=== PATIENT | female | born 1970 | race Caucasian/White ===

== ENCOUNTER 2023-12-03 07:23 | Emergency (ER) | payer OTHER, MEDICAID, SELFPAY ==
[2023-12-03 07:41] VITALS: BP 118/70; PULSE 82; RESP 18; TEMP 36.4; O2SAT 99; BMI 33.3
--- NOTE | 2023-12-03 09:55 | ED.BACK ---
HPI - Back Pain/Injury General Chief Complaint: Back Pain/Injury Stated Complaint: severe back pain down to L leg Time Seen by Provider: 12/03/23 09:33 Source: patient History of Present Illness HPI Narrative: Patient states she used an UBER/taxi to come here. Is not driving. Denies any allergies to medications. Patient states she has had ongoing pain lower back radiating to left greater than right leg down to the knees. Patient states she slipped and fell on some steps at work 3 weeks ago. She does not want L and I forms completed. She states she grabbed the hand rail with her right arm but slid down several steps. No loss of consciousness. Did not hit her head or neck. Had bruising to the left elbow and knee. That has improved. In addition, she was seen this past week at walk-in clinic for UTI. She is on antibiotics currently. No bowel or bladder incontinence. No saddle paresthesia. No numbness or tingling or weakness in her legs or feet. Feet and toes are exposed. Patient able to stand and transfer and walk from wheelchair to the bed. Related Data Previous Rx's Medication Instructions Recorded baclofen 20 mg tablet 20 mg PO TID PRN pain (scale score 12/03/23 4-6) #20 tabs Allergies Allergy/AdvReac Type Severity Reaction Status Date / Time No Known Drug Allergies Allergy Verified 12/03/23 07:52 Review of Systems Review of Systems Narrative: GENERAL: negative chills, fatigue, malaise, fever, sweats. HEENT: negative sinus pain, ear pain, sore throat RESPIRATORY: negative dyspnea, cough CARDIOVASCULAR: negative chest pain, palpitations GASTROINTESTINAL: negative nausea, vomiting, abdominal pain : negative dysuria, frequency, hematuria MUSCULOSKELETAL: Positive muscle or bony pain SKIN: negative rash, skin lesions NEUROLOGIC: negative weakness, numbness ROS Unobtainable: All systems reviewed & are unremarkable except as noted in HPI and below Patient History Social History Smoking Status: Never smoker Smoking Status: Never smoker Substance Use Type: does not use Exam Narrative Exam Narrative: GENERAL: in no distress, not toxic not dyspneic HEAD: Normocephalic. EYES: Pupils equal round ENT: Mucous membranes moist. NECK: Trachea midline. No midline tenderness or step-off of the cervical thoracic or lumbar spine. CARDIOVASCULAR: Regular rate and rhythm RESPIRATORY: Clear to auscultation. Breath sounds equal bilaterally. No wheezes, rales, or rhonchi. GASTROINTESTINAL: Abdomen soft, non-tender EXTREMITIES: No gross deformities. Left knee and elbow exposed. Full active range of motion of the left elbow with flexion-extension supination pronation. No skin injury/abrasion seen. Examination of the left knee, able to fully extend and bend to 90?. Nontender on exam. Skin is intact. No pain or laxity of the left knee with anterior posterior medial lateral and rotational stress of the left leg. BACK: No flank tenderness. Mild tenderness to bilateral para sacral paralumbar muscles. No midline tenderness or step-off. No bruising seen. Patient able to stand and bear weight. Limited ability to lean forward and back and do side bends. Mild pain straight leg raise on the left at 45?. No pain with the right straight leg raise. NEURO: AOx4. Steady self gait but slow. Strong bilateral patellar reflexes as well as ankle flexion-extension. Feet are warm soft and pink with strong pedal pulses. Brisk cap refills. Light touch intact bilateral feet and toes. SKIN: Warm and dry PSYCH: Not anxious, is cooperative Initial Vital Signs Initial Vital Signs: Vital Signs Temperature 97.6 F 12/03/23 07:41 Pulse Rate 82 12/03/23 07:41 Respiratory Rate 18 12/03/23 07:41 Blood Pressure 118/70 12/03/23 07:41 Pulse Oximetry 99 12/03/23 07:41 Oxygen Delivery Method Room Air 12/03/23 07:41 Course Orders Ordered: Discontinued Medications Hydrocodone Bitart/Acetaminophen (Hydrocodone/Acet 5/325 Tablet) 1 tab PO NOW ONE Stop: 12/03/23 09:55 Last Admin: 12/03/23 10:17 Dose: 1 tab Documented By: SHELLY Ketorolac Tromethamine (Ketorolac 30 Mg/Ml Vial) 30 mg IM NOW ONE Stop: 12/03/23 09:55 Last Admin: 12/03/23 10:17 Dose: 30 mg Documented By: SHELLY Ondansetron HCl (Ondansetron 4 Mg Odt) 4 mg SL NOW ONE Stop: 12/03/23 09:55 Last Admin: 12/03/23 10:17 Dose: 4 mg Documented By: RB Vital Signs Vital signs: Vital Signs - 8 hr 12/03/23 07:41 Temperature 97.6 F Pulse Rate 82 Respiratory Rate 18 Blood Pressure 118/70 Pulse Oximetry 99 Oxygen Delivery Method Room Air MDM - Back Pain/Injury Imaging Data CT pelvis: Radiologist's Impression: [place] [address] CT Scan Report Signed Patient: Christy Grider MR#: [id number] : 1970 Acct:[id number] Age/Sex: 53 / F Date of Service: 12/03/23 Loc: ED Accession Number: [id number] Procedure: CT pelvis wo con Ordering Provider: Pranav Mullen MD PROCEDURE: CT PEL WO CON INDICATIONS: Fall/pain TECHNIQUE: Noncontrast 3 mm axial sections acquired through the bony pelvis, with coronal and sagittal reformatting. COMPARISON: [facility], CT, CT LUMBAR SPINE WO CON, 12/03/2023, 10:06. FINDINGS: Image quality: Excellent. Bones: No fracture or dislocation. Mild degenerative joint disease in hips and sacroiliac joints. Spondylitic changes in lumbar spine. Soft tissues: No soft tissue mass or hematoma. Note is made of myomatous uterus. No free fluid in pelvis. IMPRESSION: 1. No acute osseous abnormalities. Dictated by: Steve Deras M.D. on 12/03/2023 at 10:16 Approved by: Steve Deras M.D. on 12/03/2023 at 10:19 CT lumbar spine: Radiologist's Impression: [address] [address] [address] Scan Report Signed Patient: Christy Grider MR#: [id number] : 1970 Acct:[id number] Age/Sex: 53 / F Date of Service: 12/03/23 Loc: ED Accession Number: [id number] Procedure: CT lumbar spine wo con Ordering Provider: Pranav Mullen MD PROCEDURE: CT LUMBAR SPINE WO CON INDICATIONS: Fall/pain TECHNIQUE: Noncontrast 3 mm thick sections acquired from the T12 level to the sacrum. Sagittal and coronal reformats were constructed. For radiation dose reduction, the following was used: automated exposure control. COMPARISON: None. FINDINGS: Image quality: Excellent. Bones: There is normal bony alignment. No acute vertebral body compression fractures. There is grade 1 anterolisthesis of L4 on L5. No suspicious lytic or blastic bony lesions. No pars defects. Mild degenerative disease at L2-L3, L4-L5 and L5-S1. Facet arthropathy in lumbar spine, severe at L4-L5 and L5-S1 bilaterally, and mild at L1-L2, L2-L3 and L3-L4. Central canal stenosis, moderate at L4-L5, mild at L3-L4 and L5-S1. Soft tissues: No retroperitoneal masses or hematomas. Visualized aorta is normal in caliber. IMPRESSION: 1. No acute osseous abnormalities. 2. Multilevel degenerative disc disease and facet arthropathy as described. 3. Moderate central canal stenosis at L4-L5, and mild central canal stenosis at L3-L4 and L5-S1. Dictated by: Steve Deras M.D. on 12/03/2023 at 10:19 Approved by: Steve Deras M.D. on 12/03/2023 at 10:23 Extremity x-ray #1: Radiologist's Impression: [address] [address] XRay Report Signed Patient: Christy Grider MR#: [id number] : 1970 Acct:[id number] Age/Sex: 53 / F Date of Service: 12/03/23 Loc: ED Accession Number: [id number] Procedure: XR knee LT 3V Ordering Provider: Pranav Mullen MD PROCEDURE: XR KNEE LT 3V INDICATIONS: Fall/pain TECHNIQUE: 3 views of the knee were acquired. COMPARISON: None. FINDINGS: Bones: No fractures or dislocations. No suspicious bony lesions. Soft tissues: No joint effusion. No suspicious soft tissue calcifications. IMPRESSION: No acute bony abnormality or significant effusion. If clinical symptoms persist or clinical suspicion for pathology is high, a repeat examination in 7-10 days, or advanced imaging such as CT or MRI is suggested for further evaluation. Dictated by: Steve Deras M.D. on 12/03/2023 at 11:53 Approved by: Steve Deras M.D. on 12/03/2023 at 11:53 Extremity x-ray #3: Radiologist's Impression: [address] [address] XRay Report Signed Patient: Christy Grider MR#: [id number] : 1970 Acct:[id number] Age/Sex: 53 / F Date of Service: 12/03/23 Loc: ED Accession Number: [id number] Procedure: XR elbow LT min 3V Ordering Provider: Pranav Mullen MD PROCEDURE: XR ELBOW LT MIN 3V INDICATIONS: Fall/pain TECHNIQUE: 3 views of the elbow were acquired. COMPARISON: None. FINDINGS: Bones: No fractures or dislocations. No suspicious bony lesions. Mild osteoarthritic changes noted. Soft tissues: No elbow joint effusion. No suspicious soft tissue calcifications. IMPRESSION: No acute bony abnormality or significant joint effusion. If clinical symptoms persist or clinical suspicion for pathology is high, a repeat examination in 7-10 days, or advanced imaging such as CT or MRI is suggested for further evaluation. Dictated by: Steve Deras M.D. on 12/03/2023 at 11:51 Approved by: Steve Deras M.D. on 12/03/2023 at 11:52 [facility] Narrative Medical decision making narrative: Patient states she used an UBER/taxi to come here. Is not driving. Denies any allergies to medications. Patient states she has had ongoing pain lower back radiating to left greater than right leg down to the knees. Patient states she slipped and fell on some steps at work 3 weeks ago. She does not want L and I forms completed. She states she grabbed the hand rail with her right arm but slid down several steps. No loss of consciousness. Did not hit her head or neck. Had bruising to the left elbow and knee. That has improved. In addition, she was seen this past week at walk-in clinic for UTI. She is on antibiotics currently. No bowel or bladder incontinence. No saddle paresthesia. No numbness or tingling or weakness in her legs or feet. Feet and toes are exposed. Patient able to stand and transfer and walk from wheelchair to the bed. After history and exam CT pelvis CT lumbar spine Toradol Dexter Zofran, at this time no blood work indicated. Patient already being treated for UTI, no urinalysis indicated. Clinically not pyelonephritis or kidney stone., x-ray left elbow x-ray left knee [facility] CC: Back pain Complicating co-morbidities: Recent fall Data collected from: Patient Medical records reviewed: No recent visit for this complaint Differential considered: Includes but not limited to pelvis contusion back contusion vertebral fracture herniated disc pelvic fracture Exam documented above, pertinent findings include: Tender lumbosacral area. Full active range of motion of left knee and elbow Lab Test results independently reviewed as above. Pertinent findings: None indicated this time Imaging studies independently reviewed: CT pelvis CT lumbar spine x-ray left elbow x-ray left knee no acute finding Consultations: None indicated Treatments: Toradol Dexter Zofran Re-evaluations: 12:00 p.m.. Reviewed results with patient. Patient states pain is much better now. She feels like the Toradol helped her more than the Dexter. I will prescribe oral ketorolac for her. Reviewed with her likely after her injury she continued to work and she has existing back problems and likely exacerbated this. Primary care referral given. Work note provided however, she still desires to go to work tomorrow. She was supposed to be at work today. 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 Return precautions reviewed. She will call a taxi for home. Not toxic at discharge. She desires discharge home Discussion: Appropriate for discharge home. Pain is controlled. Work note provided. Oral ketorolac and baclofen will be provided. Not toxic at discharge. 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 Return precautions reviewed. She desires discharge home. Diagnosis: Elbow contusion knee contusion back contusion Discharge Plan Departure Patient Disposition: Home Clinical Impression: Back contusion, Contusion of elbow, left, Contusion of knee, left Instructions: DI for Low Back Pain, DI for Contusion, DI for Back Pain With Sciatica Activity Restrictions/Additional Instructions: Please see family doctor in a week for re-evaluation of your injuries. Get plenty of rest. Work note has been provided for you. Return if worse if any questions or concerns. No driving or operating machinery today. Call provided primary care referral phone number to establish family doctor. Call [phone] Prescriptions: New baclofen 20 mg tablet 20 mg PO TID PRN (Reason: pain (scale score 4-6)) Qty: 20 0RF Stand Alone Forms: Patient Portal/API, Work Release Note
--- NOTE | 2023-12-03 10:00 | DI.RAD.S_ITS ---
PROCEDURE: XR KNEE LT 3V INDICATIONS: Fall/pain TECHNIQUE: 3 views of the knee were acquired. COMPARISON: None. FINDINGS: Bones: No fractures or dislocations. No suspicious bony lesions. Soft tissues: No joint effusion. No suspicious soft tissue calcifications. IMPRESSION: No acute bony abnormality or significant effusion. If clinical symptoms persist or clinical suspicion for pathology is high, a repeat examination in 7-10 days, or advanced imaging such as CT or MRI is suggested for further evaluation. Dictated by: Steve Deras M.D. on 12/03/2023 at 11:53 Approved by: Steve Deras M.D. on 12/03/2023 at 11:53
--- NOTE | 2023-12-03 10:00 | DI.RAD.S_ITS ---
PROCEDURE: XR ELBOW LT MIN 3V INDICATIONS: Fall/pain TECHNIQUE: 3 views of the elbow were acquired. COMPARISON: None. FINDINGS: Bones: No fractures or dislocations. No suspicious bony lesions. Mild osteoarthritic changes noted. Soft tissues: No elbow joint effusion. No suspicious soft tissue calcifications. IMPRESSION: No acute bony abnormality or significant joint effusion. If clinical symptoms persist or clinical suspicion for pathology is high, a repeat examination in 7-10 days, or advanced imaging such as CT or MRI is suggested for further evaluation. Dictated by: Steve Deras M.D. on 12/03/2023 at 11:51 Approved by: Steve Deras M.D. on 12/03/2023 at 11:52
[2023-12-03] MEDS: HYDROCODONE/ACET 5/325 TABLET 1 TAB PO (10:17)
[2023-12-03] MEDS: ONDANSETRON 4 MG ODT SL (10:17)
[2023-12-03] MEDS: KETOROLAC 30 MG/ML VIAL IM (10:17)
[2023-12-03 12:47] VITALS: BP 121/70; PULSE 86; RESP 16; TEMP 36.7; O2SAT 99
== END 2023-12-03 11:45 | disposition home or self-care (01) ==
PROVIDERS: Emergency Provider Emergency Medicine
DX: S80.02XA Contusion of left knee, initial encounter (principal); S50.02XA Contusion of left elbow, initial encounter; S30.0XXA Contusion of lower back and pelvis, initial encounter; W10.9XXA Fall (on) (from) unspecified stairs and steps, initial encounter
CPT/HCPCS: 72131; 72192; 73080; 73562; 96372; 99284; J1885

== ENCOUNTER 2024-06-25 11:46 | Emergency (ER) | payer OTHER, MEDICAID, SELFPAY ==
[2024-06-25 11:52] VITALS: BP 123/58; PULSE 97; RESP 19; TEMP 36.5; O2SAT 99; BMI 33.3
--- NOTE | 2024-06-25 11:58 | DI.RAD.S_ITS ---
PROCEDURE: XR CHEST 2V INDICATIONS: cough, phlegm, recent travel TECHNIQUE: 2 views of the chest were acquired. COMPARISON: None. FINDINGS: Surgical changes and devices: None. Lungs and pleura: Lungs are clear. No pleural effusions or pneumothorax. Mediastinum: Mediastinal contours are normal. Heart size is normal. Bones and chest wall: No suspicious bony abnormalities. Soft tissues appear unremarkable. IMPRESSION: No acute cardiopulmonary abnormality is seen. Dictated by: Jocelyn Carty M.D. on 06/25/2024 at 11:26 Approved by: Jocelyn Carty M.D. on 06/25/2024 at 11:27
--- NOTE | 2024-06-25 12:00 | PC.NURSE ---
Patient unable to tolerate respiratory swab and declined to have it done.
--- NOTE | 2024-06-25 13:43 | ED_ITS ---
HPI - URI/Sore Throat <JUNG Craig - Last Filed: 06/25/24 14:10> General Chief Complaint: Upper Respiratory Symptoms Stated Complaint: Cough for a Week Time Seen by Provider: 06/25/24 13:43 Source: patient Mode of arrival: Ambulatory History of Present Illness HPI Narrative: 53-year-old female, never smoker, presents to the emergency department with persistent cough times 5 days. Patient was in [place] where she had a 360 degree liposuction completed. Patient states that she started develop a cough a couple of days after the procedure and has been persistent since she got back to [facility]. Patient drinks plenty of water and has been elevating the head of her bed but is tired from the cough. Patient denies any shortness of breath. Patient declined a respiratory viral panel, but was agreeable to a chest x-ray. Related Data Previous Rx's Medication Instructions Recorded baclofen 20 mg tablet 20 mg PO TID PRN pain (scale score 12/03/23 4-6) #20 tabs cetirizine 10 mg tablet 10 mg PO DAILY PRN allergy 06/25/24 symptoms #30 tabs codeine 10 mg-guaifenesin 100 mg/5 5 ml PO Q6H PRN cough #120 mL 06/25/24 mL oral liquid (Guaifenesin AC) fluticasone propionate 50 1 spray intranasal BID #16 grams 06/25/24 mcg/actuation nasal spray,suspension Allergies Allergy/AdvReac Type Severity Reaction Status Date / Time No Known Drug Allergies Allergy Verified 06/25/24 11:52 Review of Systems <JUNG Craig - Last Filed: 06/25/24 14:10> Review of Systems Narrative: Narrative: See HPI. GENERAL: Denies chills, fatigue, fever, sweats. HEENT: Denies sinus pain, ear pain, sore throat, difficulty swallowing, dizziness. RESPIRATORY: Denies dyspnea, wheezing, sputum. Endorses cough and congestion. CARDIOVASCULAR: Denies chest pain, palpitations, edema. GASTROINTESTINAL: Denies nausea, vomiting, abdominal pain, diarrhea, constipation. : Denies dysuria, frequency, incontinence, hematuria, urinary retention, flank pain. MSK: Denies weakness, joint pain, or bony pain. SKIN: Denies rash, skin lesions, or pruritis. NEUROLOGIC: Denies weakness, dizziness, headache, numbness, confusion. PSYCHIATRIC: No concerning psychosocial issues. Patient History <JUNG Craig - Last Filed: 06/25/24 14:10> Social History Smoking Status: Never smoker Smoking Status: Never smoker Substance Use Type: does not use Exam <JUNG Craig - Last Filed: 06/25/24 14:10> Narrative Exam Narrative: Exam Narrative: GENERAL: This is a well-nourished, well-developed patient, in no acute distress. HEAD: Atraumatic. Normocephalic. EYES: Pupils equal round and reactive. No scleral icterus, injection or drainage. ENT: Nose without bleeding, purulent drainage. Throat without erythema, tonsillar hypertrophy or exudate. Uvula midline. Airway patent. TMs and canals clear, with bilateral effusion. No sinus tenderness. NECK: Trachea midline. No JVD or lymphadenopathy. Nontender. CARDIOVASCULAR: Regular rate and rhythm without murmurs, peripheral pulses intact, cap refill <2 sec. RESPIRATORY: Breath sounds equal and clear bilaterally. No wheezes, rales, or rhonchi. Positive cough. No increased respiratory effort. No accessory muscle use. MSK: Moves all extremities. Normal range of motion, no clubbing or edema. Neurovascularly intact. NEURO: A&O x 3. SKIN: Warm, dry, no rashes or lesions noted. Initial Vital Signs Initial Vital Signs: Vital Signs Temperature 97.7 F 06/25/24 11:52 Pulse Rate 97 H 06/25/24 11:52 Respiratory Rate 06/25/24 11:52 Blood Pressure 123/58 L 06/25/24 11:52 Pulse Oximetry 99 06/25/24 11:52 Oxygen Delivery Method Room Air 06/25/24 11:52 Reviewed <Ferny Gamez MD - Last Filed: 06/25/24 22:25> Initial Vital Signs Initial Vital Signs: Vital Signs Temperature 97.7 F 06/25/24 11:52 Pulse Rate 97 H 06/25/24 11:52 Respiratory Rate 06/25/24 11:52 Blood Pressure 123/58 L 06/25/24 11:52 Pulse Oximetry 99 06/25/24 11:52 Oxygen Delivery Method Room Air 06/25/24 11:52 Course <JUNG Craig - Last Filed: 06/25/24 14:10> Orders Ordered: ED Orders 06/25/24 11:58 XR chest 2V Stat Vital Signs Vital signs: Vital Signs - 8 hr 06/25/24 11:52 Temperature 97.7 F Pulse Rate 97 H Respiratory Rate 19 Blood Pressure 123/58 L Pulse Oximetry 99 Oxygen Delivery Method Room Air <Ferny Gamez MD - Last Filed: 06/25/24 22:25> Orders Ordered: ED Orders 06/25/24 11:58 XR chest 2V Stat Vital Signs Vital signs: Vital Signs - 8 hr 06/25/24 11:52 Temperature 97.7 F Pulse Rate 97 H Respiratory Rate 19 Blood Pressure 123/58 L Pulse Oximetry 99 Oxygen Delivery Method Room Air MDM - URI/Sore Throat <JUNG Craig - Last Filed: 06/25/24 14:10> Differential Diagnosis Differential diagnosis: Likely upper respiratory infection and viral infection Imaging Data Chest x-ray: Radiologist's Impression: [address] [address] XRay Report Signed Patient: Christy Grider MR#: [id number] : 1970 Acct:[id number] Age/Sex: 53 / F Date of Service: 06/25/24 Loc: ED Accession Number: [id number] Procedure: XR chest 2V Ordering Provider: Ferny Gamez MD PROCEDURE: XR CHEST 2V INDICATIONS: cough, phlegm, recent travel TECHNIQUE: 2 views of the chest were acquired. COMPARISON: None. FINDINGS: Surgical changes and devices: None. Lungs and pleura: Lungs are clear. No pleural effusions or pneumothorax. Mediastinum: Mediastinal contours are normal. Heart size is normal. Bones and chest wall: No suspicious bony abnormalities. Soft tissues appear unremarkable. IMPRESSION: No acute cardiopulmonary abnormality is seen. Dictated by: Jocelyn Carty M.D. on 06/25/2024 at 11:26 Approved by: Jocelyn Carty M.D. on 06/25/2024 at 11:27 [facility] Narrative Medical decision making narrative: 53-year-old female that presents emergency department with cough x5 days. Assessment was encouraging and clinical findings were suggestive of allergic rhinitis. Chest x-ray was normal. I suspect much of patient's symptoms are from sinus drainage. Recommended supportive care that included rest, increased oral hydration, gargling with warm salt water in the morning, daily Zyrtec and Flonase nasal spray. Recommended patient try Delsym for cough but have agreed to give a short amount of guaifenesin with codeine for nighttime. Discussed plan of care and return precautions with the patient, who verbalized understanding and was agreeable to course of action. Discharge Plan Departure Patient Disposition: Home Clinical Impression: Upper respiratory infection Qualifiers: URI type: unspecified URI Qualified Code(s): J06.9 - Acute upper respiratory infection, unspecified Instructions: DI for Cough -- Adult Activity Restrictions/Additional Instructions: *You have been diagnosed with an acute cough. My assessment was encouraging, your lungs were clear, your oxygenation was 99% and your chest x-ray was normal. I suspect much of your symptoms are from sinus drainage. Recommended supportive care that included rest, increased oral hydration, gargling with warm salt water in the morning, daily Zyrtec and Flonase nasal spray. For your nighttime cough, I prescribed a short course of cough suppressant, but highly recommend you obtain some Delsym from the pharmacy to try first. *What to do: *Please continue to take your regular medications as directed. [x ] New medication prescriptions sent to your pharmacy: [[facility]] [ ] New medication written as a paper prescription [ ] No new medications given *Please follow up with your primary care provider in 2-3 days, call for an appointment. Let them know you were seen in the Emergency Department and that we ask that you be seen in follow up. We will electronically transmit a record of today's note if your PCP is in our system *If you do not have a primary care provider please contact the [facility] Resource line at [phone]. They will ask some questions about your medical history and help get you set up with a doctor in the community. ? Return to ER if you should have any new, worsening or concerning symptoms, such as worsening pain, severe headache, confusion, chest pain, difficulty breathing, fever greater than 101 F, shaking chills, persistent vomiting to the point that you cannot drink fluids, or other new or worsening symptoms. Prescriptions: New codeine-guaifenesin [Guaifenesin AC] 10-100 mg/5 mL liquid 5 ml PO Q6H PRN (Reason: cough) Qty: 120 0RF fluticasone propionate 50 mcg/actuation spray,suspension 1 spray intranasal BID Qty: 16 0RF Rx Instructions: administer into each nostril cetirizine 10 mg tablet 10 mg PO DAILY PRN (Reason: allergy symptoms) Qty: 30 0RF No Action baclofen 20 mg tablet 20 mg PO TID PRN (Reason: pain (scale score 4-6)) Qty: 20 0RF Stand Alone Forms: Patient Portal/API ED Sign-out <Ferny Gamez MD - Last Filed: 06/25/24 22:25> Cosign ED Attending Cosignature Attestation: I was immediately available in the department for consultation. This documentation has been reviewed and I agree with assessment and plan. Supervised by Ferny Gamez MD
== END 2024-06-25 14:09 | disposition home or self-care (01) ==
PROVIDERS: Emergency Provider Registered Nurse
DX: J06.9 Acute upper respiratory infection, unspecified (principal); R05.9 Cough, unspecified
CPT/HCPCS: 71046; 99283